=== PATIENT | female | born 1955 | race Caucasian/White ===

== ENCOUNTER 2020-01-12 09:50 | Emergency (ER) | payer OTHER ==
[~2020-01-12] VITALS: Ht 170.2 cm; Wt 68.0 kg
[~2020-01-12 09:50] MED LIST: AMARYL2 MG PO; ASPIR 8181 M1 PO; COMPAZINE10 MG PO; IBUPROFEN 600600 M1 PO; IMITREX100 MG PO; INVOKANA100 MG PO; LANTUS100 UNIT/M SUBQ; LOTRISONE CREAM15 GM TP; METFORMIN HCL500 MG PO; NICOTINE TRANSD21 M1; NORCO 10-325 T1 EACH PO; PERCOCET 5-3251 EACH PO; PROMS25 WY RECTAL; PROPRANOLOL 1010 MG PO; SOMA350 MG PO; TOFRANIL50 MG PO; VALIUM5 MG PO; VENLAFAXINE HCL25 MG PO; ZOCOR 20 MG TAB20 M1 PO
[2020-01-12] MEDS ORDERED: INDERAL60 MG PO (10:37)
[2020-01-12] MEDS ORDERED: ACYCLOVIR 200200 MG PO (10:37)
[2020-01-12 11:01] LABS: ABSOLUTE NEUTROPHILS 5.1 thou/uL (1.4-8.2); BASOPHILS 0.5 % (0.0-2.0); EOSINOPHILS 1.9 % (0.0-3.0); HEMOGLOBIN 14.4 gm/dL (12.0-15.0); MCH 30.1 pg (26.0-34.0); MCHC 33.5 g/dL (28.0-37.0); MONOCYTES 6.6 % (1.0-8.0); PLATELET COUNT 319 thou/uL (150-400); RBC 4.77 mil/uL (4.20-5.00); RDW 12.9 % (10.5-14.5)
[2020-01-12 11:12] LABS: ANION GAP 7 mmol/L (7-16); BUN 12 mg/dL (7-18); CALCIUM 9.2 mg/dL (8.5-10.1); CHLORIDE 101 mmol/L (98-107); CO2 30 mmol/L (21-32); CREATININE 0.7 mg/dL (0.6-1.0); GLUCOSE 213 mg/dL (74-106); POTASSIUM 4.5 mmol/L (3.5-5.1); SODIUM 138 mmol/L (136-145)
[2020-01-12 11:22] LABS: ALBUMIN 3.6 g/dL (3.4-5.0); MAGNESIUM 1.8 mg/dL (1.8-2.4); SGOT 11 U/L (15-37); SGPT 14 U/L (30-65); TOTAL BILIRUBIN 0.2 mg/dL (<0.1-1.0); TOTAL PROTEIN 6.4 g/dL (6.4-8.2); TROPONIN-I <0.06 ng/mL (<0.06)
[2020-01-12 12:20] LABS: URINE BILIRUBIN NEGATIVE (Negative); URINE BLOOD NEGATIVE (Negative); URINE CLARITY CLEAR; URINE COLOR YELLOW; URINE GLUCOSE-RANDOM* NEGATIVE (Negative); URINE KETONES NEGATIVE (Negative); URINE LEUKOCYTES-REFLEX TRACE (Negative); URINE NITRITE-REFLEX NEGATIVE (Negative); URINE PROTEIN (DIPSTICK) NEGATIVE (Negative); URINE SPECIFIC GRAVITY <= 1.005 (1.005-1.035); URINE UROBILINOGEN 0.2 E.U./dl (0.2-1.0)
[2020-01-12 12:26] LABS: AMP/METHAMP Negative (Negative); BARBITURATES Negative (Negative); BENZODIAZEPINES POSITIVE (Negative); COCAINE Negative (Negative); METHADONE Negative (Negative); OPIATES Negative (Negative); PCP Negative (Negative)
[2020-01-12 13:59] VITALS: BP 153/75
--- NOTE | 2020-01-13 09:32 | EKG ---
[facility] [place] [address] [place] [address] ELECTROCARDIOGRAM REPORT Name: XOCHITL RIDLEY Room #: DEP [facility]#: [id number] Admission: 01/12/20 Attend Phys: Discharge: 01/12/20 Date of : 59 Report #: [id number] THIS REPORT FOR: cc: Gricelda Schwarz MD, Cynthia MD Lundgren,Juan Aguilar MD [facility] ~ THIS REPORT FOR: //name// [facility] ED Test Date: 2020-01-12 Test Time: 10:39:21 Pat Name: XOCHITL RIDLEY Department: Room: Gender: Plane Tender: IZZY : 1955 Requested By: Ry Chau Order Number: [id number] MD: Juan Carrillo Measurements Intervals [place] Rate: 88 P: 26 [place]: 181 QRS: 24 QRSD: 73 T: 32 QT: 356 QTc: 431 Interpretive Statements Sinus rhythm Normal tracing No previous ECG available for comparison Electronically Signed On 01-13-2020 9:31:29 [place] by Juan Carrillo [email or web address] <ELECTRONICALLY SIGNED> By: Juan Carrillo MD, [facility] 01/13/20 0931 1039 1039 Juan Carrillo MD, [facility] /EPI
== END 2020-01-12 14:00 | disposition home or self-care (01) ==
LOC: ER 09:50
PROVIDERS: Emergency Medicine
DX: S01.01XA Laceration without foreign body of scalp, initial encounter (principal); R55 Syncope and collapse; G43.909 Migraine, unspecified, not intractable, without status migrainosus; E11.9 Type 2 diabetes mellitus without complications; F17.210 Nicotine dependence, cigarettes, uncomplicated; Z88.1 Allergy status to other antibiotic agents; Z88.5 Allergy status to narcotic agent; Z88.2 Allergy status to sulfonamides; W19.XXXA Unspecified fall, initial encounter; Y93.89 Activity, other specified; Y92.89 Other specified places as the place of occurrence of the external cause; Y99.8 Other external cause status; Z79.899 Other long term (current) drug therapy